=== PATIENT | male | born 1960 | race Caucasian/White ===

== ENCOUNTER 2018-05-25 07:39 | Inpatient (IN) | payer OTHER ==
[2018-05-25] MEDS ORDERED: HEPARIN 1000 UNITS/ML 10 ML INJ (09:57)
[2018-05-25] MEDS ORDERED: HYDROmorphONE 1 MG/5 ML IV SYRINGE IV ×3 (10:00)
[2018-05-25] MEDS ORDERED: AL HYDROX/MG HYDROX/SIMETH 30 ML CUP PO (10:00)
[2018-05-25] MEDS ORDERED: DIPHENHYDRAMINE 50 MG INJ IV ×2 (10:00)
[2018-05-25] MEDS ORDERED: MEPERIDINE 25 MG INJ IV (10:00)
[2018-05-25] MEDS ORDERED: LABETALOL HCL 20MG INJ IV (10:00)
[2018-05-25] MEDS ORDERED: NALOXONE (0.4 MG/ML) INJ IV (10:00)
[2018-05-25] MEDS ORDERED: CYCLOBENZAPRINE 10 MG TAB PO (10:00)
[2018-05-25] MEDS ORDERED: HYDROmorphONE 0.5 MG/0.5 ML SYG IV (10:00)
[2018-05-25] MEDS ORDERED: hydrALAzine 20 MG INJ IV (10:00)
[2018-05-25] MEDS ORDERED: ONDANSETRON 4 MG INJ IV ×2 (10:00)
[2018-05-25] MEDS ORDERED: BISACODYL 10 MG SUPP PR (10:00)
[2018-05-25] MEDS ORDERED: ZOLPIDEM 5 MG TAB PO (10:00)
[2018-05-25] MEDS ORDERED: CEPASTAT LOZENGE MT (10:00)
[2018-05-25] MEDS ORDERED: MIDAZOLAM 1 MG/ML 2 ML INJ (10:06)
[2018-05-25] MEDS ORDERED: METOCLOPRAMIDE 10 MG INJ (10:06)
[2018-05-25] MEDS ORDERED: FENTAnyl 50 MCG/ML VIAL (10:11)
[2018-05-25] MEDS ORDERED: ACETAMINOPHEN 1000MG/100ML IV 100 ML (10:21)
[2018-05-25] MEDS ORDERED: ROCURONIUM 50 MG INJ ×3 (10:21→11:02)
[2018-05-25] MEDS ORDERED: CEFAZOLIN 1 GM INJ (10:21)
[2018-05-25] MEDS ORDERED: PROPOFOL 20 ML (10:21)
[2018-05-25] MEDS ORDERED: HYDROmorphONE 2 MG/ML SYG (10:52)
[2018-05-25] MEDS: BUPIVACAINE 0.25%/EPI (SDV) 30 ML INJ (11:36)
[2018-05-25] MEDS: GELATIN SIZE 100 SPONGE (11:37)
[2018-05-25] MEDS: SURGIFOAM POWDER 1 GM KIT (11:37)
[2018-05-25] MEDS: THROMBIN 5000 UNIT VIAL (11:38)
[2018-05-25] MEDS: POLYMYXIN/BACITRACIN 1L IRRIG (11:40)
[2018-05-25] MEDS ORDERED: DEXAMETHASONE 4 MG/ML 1 ML INJ (12:01)
[2018-05-25] MEDS ORDERED: GLYCOPYRROLATE 0.4 MG INJ ×2 (12:24→12:25)
[2018-05-25] MEDS ORDERED: NEOSTIGMINE 3 MG/3 ML SYRINGE (12:24)
[2018-05-25] MEDS ORDERED: LIDOCAINE 2% JELLY 5 ML (12:35)
[2018-05-25] MEDS ORDERED: CEFAZOLIN 1 GM/50 ML (PMX) 50 ML IVPB (13:00)
[2018-05-25] MEDS: HYDROmorphONE 0.2 MG/ML PCA IV (13:01)
[2018-05-25] MEDS: D5W-0.45 NACL + KCL 20 MEQ 1,000 ML IV ×2 (14:46→23:34)
[2018-05-25] MEDS: CEFAZOLIN 1 GM/50 ML (PMX) 50 ML IVPB (18:08)
[2018-05-25] MEDS: DOCUSATE SODIUM 100 MG CAP PO (20:23)
[2018-05-26] MEDS: CEFAZOLIN 1 GM/50 ML (PMX) 50 ML IVPB ×2 (01:42→08:36)
[2018-05-26] MEDS: PANTOPRAZOLE 40 MG INJ IV (05:20)
[2018-05-26 05:54] LABS: ADD MAN DIFF? NO
[2018-05-26 06:01] LABS: BASOPHILS % 0.1 % (0.0-2.0); HEMATOCRIT 42.6 % (42.0-52.0); HEMOGLOBIN 14.3 g/dl (14.0-18.0); LYMPHOCYTES # 0.9 10^3/ul (0.8-2.9); LYMPHOCYTES % 5.8 % (15.0-51.0); MEAN CORPUSCULAR HEMOGLOBIN 31.7 pg (29.0-33.0); MEAN CORPUSCULAR HGB CONC 33.6 g/dl (32.0-37.0); MEAN CORPUSCULAR VOLUME 94.5 fl (82.0-101.0); MEAN PLATELET VOLUME 11.2 fl (7.4-10.4); MONOCYTE # 0.6 10^3/ul (0.3-0.9); MONOCYTES % 4.2 % (0.0-11.0); NEUTROPHIL # 13.6 10^3/ul (1.6-7.5); NEUTROPHILS % 89.1 % (39.0-77.0); PLATELET COUNT 233 10^3/UL (140-415); RED BLOOD COUNT 4.51 10^6/ul (4.70-6.10); RED CELL DISTRIBUTION WIDTH 12.6 % (11.5-14.5)
[2018-05-26 06:01] LABS: WHITE BLOOD COUNT 15.3 10^3/ul (4.8-10.8)
[2018-05-26 06:31] LABS: ANION GAP 12 (8-16); BLOOD UREA NITROGEN 17 mg/dl (7-20); CARBON DIOXIDE 26 mmol/L (21-31); CHLORIDE 107 mmol/L (97-110); CREATININE 0.79 mg/dl (0.61-1.24); GLUCOSE 128 mg/dl (70-220); MAGNESIUM 1.8 mg/dl (1.7-2.5); POTASSIUM 4.4 mmol/L (3.5-5.1); SODIUM 141 mmol/L (135-144)
[2018-05-26 06:32] LABS: CALCIUM 9.1 mg/dl (8.4-10.2)
[2018-05-26] MEDS: DOCUSATE SODIUM 100 MG CAP PO (08:38)
[2018-05-26] MEDS: D5W-0.45 NACL + KCL 20 MEQ 1,000 ML IV (08:40)
[2018-05-26] MEDS ORDERED: HYDROCODONE/APAP (10/325) TAB PO ×2 (10:00)
[2018-05-26] MEDS: ACETAMINOPHEN 325 MG TAB PO (10:52)
== END 2018-05-26 14:42 | disposition home or self-care (01) | DRG 473 ==
LOC: REC 07:39 → MS1 14:19
PROC: 0RG10A0 Fusion of Cervical Vertebral Joint with Interbody Fusion Device, Anterior Approach, Anterior Column, Open Approach (ICD-10-PCS; principal; 2018-05-25 10:05)
PROC: 0RT30ZZ Resection of Cervical Vertebral Disc, Open Approach (ICD-10-PCS; 2018-05-25 10:05)
DX: M50.123 Cervical disc disorder at C6-C7 level with radiculopathy (principal); M48.02 Spinal stenosis, cervical region; Z98.1 Arthrodesis status
CPT/HCPCS: 72052; 80048; 83735; 85025; 97116; 97161; 97530